=== PATIENT | female | born 1960 | race American Indian/Alaskan Native ===

== ENCOUNTER 2022-02-18 21:09 | Emergency (ER) | payer MEDICARE ==
--- NOTE | 2022-02-19 10:33 | Electrocardiograph Report ---
[facility] [place] [facility] Test Date: 2022-02-18 Test Time: 22:17:04 Pat Name: JOEY NORRIS Department: Room: Gender: F [employer]: NURSE : 1960 Requested By: SERGIO MONTGOMERY Order Number: [id number] Reading MD: Sergo Rodriguez Measurements Intervals [place] Rate: 87 P: 62 NE: 171 QRS: 55 QRSD: 99 T: 147 QT: 447 QTc: 539 Interpretive Statements Sinus rhythm Abnormal T, consider ischemia, diffuse leads Prolonged QT interval No previous ECG available for comparison Electronically Signed On 02-19-2022 10:33:16 EDT by Sergo Rodriguez
== END 2022-02-19 03:44 | disposition left against medical advice (07) ==
LOC: ED 21:09
DX: R07.9 Chest pain, unspecified (principal); Z53.21 Procedure and treatment not carried out due to patient leaving prior to being seen by health care provider
CPT/HCPCS: 93005

== ENCOUNTER 2022-02-18 21:27 | Emergency (ER) | payer MEDICARE ==
[2022-02-18 22:01] VITALS: BP 124/78
== END 2022-02-19 06:05 | disposition left against medical advice (07) ==
LOC: EDUNIT# → ED 21:27
DX: R07.9 Chest pain, unspecified (principal); Z53.21 Procedure and treatment not carried out due to patient leaving prior to being seen by health care provider